=== PATIENT | male | born 1970 | race Caucasian/White ===

== ENCOUNTER 2018-05-23 15:50 | Observation (INO) ==
[2018-05-23] MEDS ORDERED: Sod Chloride 0.9% Inj 1,000 ML IV.SIG ONE (17:33)
--- NOTE | 2018-05-23 17:36 | ED ---
HPI General Chief complaint: Abdominal Pain Stated complaint: Pancreas Time Seen by Provider: 05/23/18 17:21 History of Present Illness HPI narrative: This is a 47-year-old male who was sent by his primary care physician Dr. Kojo Guzman for evaluation of abnormal outpatient ultrasound results. The patient reports over the past 2 months he has been having intermittent pain in his right upper quadrant of the abdomen. Pain is sharp, seems to be worse after eating fatty foods. He reports that he had a particularly bad episode over the weekend and then another one yesterday after eating a breakfast burrito. The pain is associated with nausea. Currently he is not having any pain. He was seen today by his primary care physician and sent for an outpatient right upper quadrant ultrasound which revealed limited visibility of the pancreas, fluid collection adjacent to the pancreatic head, could be reflection of pseudocyst formation or possible pancreatic inflammation such as pancreatitis. CT scan with contrast recommended, numerous gallstones in the gallbladder with some sludge, gallbladder wall thickening is not substantially present but there is pericholecystic fluid present which suggest possible inflammation. Further investigation with nuclear medicine HIDA scan recommended. The patient is denying any fevers, chills, vomiting, flank pain. He reports that he drinks 2 beers approximately 4-5 days a week. Reports history of appendectomy. No other complaints. Related Data Home Medications Medication Instructions Recorded Confirmed amlodipine 10 mg PO DAILY 05/23/18 05/23/18 dapagliflozin [Farxiga] 10 mg PO DAILY 05/23/18 05/23/18 ergocalciferol (vitamin D2) 50,000 unit PO QWEEK 05/23/18 05/23/18 [Vitamin D2] lisinopril 20 mg PO DAILY 05/23/18 05/23/18 phentermine 37.5 mg PO DAILY 05/23/18 05/23/18 Allergies Allergy/AdvReac Type Severity Reaction Status Date / Time No Known Allergies Allergy Uncoded 11/28/15 23:59 Review of Systems ROS: all other systems reviewed are negative [facility] Medical History Medical History Diabetes (Acute) Hypertension (Acute) Obesity (Acute) Surgical History Surgical History Hx of appendectomy (Acute) Family History Family History Mother Osteoarthritis Father Suicide Social History Social History Substance History: Past History Second Hand Smoke Exposure: No Smoking Status: Never smoker How Often Do You Have a Drink Containing Alcohol: 4 or more times a week Recent Travel in [place] within the Last 8 Weeks: No Recent Out of Country Travel within the Last 8 Weeks: No Exam Narrative Exam Narrative: GENERAL: Pleasant well-developed well-nourished male in no acute distress SKIN: Warm and dry. HEAD: Atraumatic. Normocephalic. EYES: Pupils equal and round. No scleral icterus. No injection or drainage. ENT: No nasal bleeding or discharge. Mucous membranes pink and moist. NECK: Trachea midline. No JVD. CARDIOVASCULAR: Regular rate and rhythm. No murmur appreciated. RESPIRATORY: No accessory muscle use. Clear to auscultation. Breath sounds equal bilaterally. GASTROINTESTINAL: Abdomen soft, tender to palpation right upper quadrant, somewhat positive Bergman sign. MUSCULOSKELETAL: No obvious deformities. No clubbing. No cyanosis. No edema. NEUROLOGICAL: Awake and alert. No obvious cranial nerve deficits. Motor grossly within normal limits. Normal speech. Course Initial Documented Vital Signs Temperature 98.1 F 05/23/18 17:10 Pulse Rate 111 H 05/23/18 17:10 Respiratory Rate 18 05/23/18 17:10 Blood Pressure 143/73 H 05/23/18 17:10 Pulse Oximetry 97 05/23/18 17:10 Last Documented Vital Signs Temperature 98 F 05/24/18 16:44 Pulse Rate 91 H 05/24/18 16:44 Respiratory Rate 18 05/24/18 16:44 Blood Pressure 109/62 05/24/18 16:44 Pulse Oximetry 97 05/24/18 16:44 Medical Decision Making SUGEY Attestation SUGEY supervised visit: Yes Attestation: I, Dr. Cota, have reviewed the advance practice practitioner's documentation and am in agreement, met with the patient face to face, made the diagnosis, and the medical decision making was done by me. *My assessment and Findings: Patient is a 47 year old male who comes in comes in due to multiple episodes of abdominal pain with vomiting after eating fatty meals for the past 2 months. He had an ultrasound performed as an outpatient and was told to come to the ED. Patient is currently nontender on exam. He had his last episode last night. AG is elevated to 16, likely due to vomiting. CT ordered, surgery consulted. Patient to be admitted. MDM Narrative Medical decision making narrative: IV established, lab work, CT abdomen pelvis ordered. The patient was given 1 L normal saline. Lab work reveals leukocytosis with WBC count of 13.2, IV Zosyn was administered when this resulted. Anion gap is 16, carbon dioxide 17. Random glucose is 150. Lactic acid is 1.6. Beta hydroxybutyrate is 4.81. Additional liter of normal saline administered. CT abdomen pelvis reveals severe hepatic steatosis as well as a dilated gallbladder containing wall thickening versus pericholecystic fluid. Cholecystitis should be excluded. The case will be discussed with the on-call surgeon. Last meal was yesterday. d/w Dr. Dowd general surgery who would like the patient admitted to medicine and he will consult, remain npo. D/W Dr. Mancuso. Medical Screen Exam Complete: Yes Emergency Medical Condition: Yes Differential Diagnosis Differential Diagnosis: Cholecystitis versus biliary colic versus pancreatitis versus choledocholithiasis versus gastritis Lab Data Result diagrams: 05/24/18 04:50 05/24/18 04:30 Lab Results 05/23/18 05/23/18 05/23/18 Range/Units 17:54 17:54 17:54 WBC 13.2 H (4.0-11.0) th/mm3 RBC 5.75 (4.50-5.90) mil/mm3 Hgb 16.9 (13.0-17.0) gm/dL Hct 50.0 (39.0-51.0) % MCV 87.0 (80.0-100.0) fL MCH 29.4 (27.0-34.0) pg MCHC 33.8 (32.0-36.0) % RDW 15.1 (11.6-17.2) % Plt Count 250 (150-450) th/mm3 MPV 7.5 (7.0-11.0) fL Neut % (Auto) 78.0 H (16.0-70.0) % Lymph % (Auto) 12.5 (9.0-44.0) % [place] % (Auto) 8.8 H (0.0-8.0) % Eos % (Auto) 0.2 (0.0-4.0) % Baso % (Auto) 0.5 (0.0-2.0) % Neut # (Auto) 10.3 H (1.8-7.7) th/mm3 Lymph # (Auto) 1.6 (1.0-4.8) th/mm3 [place] # (Auto) 1.2 H (0.0-0.9) th/mm3 Eos # (Auto) 0.0 (0.0-0.4) th/mm3 Baso # (Auto) 0.1 (0.0-0.2) th/mm3 WBC Differential . Differential Comment Auto diff final PT 10.3 (9.8-11.6) sec INR 1.0 Ratio APTT 31.5 (23.4-31.7) sec Sodium 135 L (136-145) meq/L Potassium 4.3 (3.5-5.1) meq/L Chloride 102 (98-107) meq/L Carbon Dioxide 17.0 L (21.0-32.0) meq/L Anion Gap 16 H (5-15) meq/L BUN 14 (7-18) mg/dL Creatinine 1.12 (0.60-1.30) mg/dL Estimated GFR 70 L (>89) mL/min POC Glucose (68-110) mg/dl Random Glucose 150 H (74-106) mg/dL Lactic Acid (0.4-2.0) mmol/L Calcium 10.5 H (8.5-10.1) mg/dL Magnesium 2.3 (1.5-2.5) mg/dL Total Bilirubin 1.5 H (0.2-1.0) mg/dL AST 21 (15-37) U/L ALT 104 H (12-78) U/L Alkaline Phosphatase 79 (45-117) U/L Total Protein 9.5 H (6.4-8.2) g/dL Albumin 4.6 (3.4-5.0) g/dL Lipase 113 (73-393) U/L Beta-Hydroxybutyric Acd (0.00-0.39) mmol/L Urine Color (Yellw/Straw) Urine Clarity (Clear) Urine pH (5.0-8.5) Ur Specific [place] (1.002-1.035) Urine Protein (Neg-Trace) mg/dL Urine Glucose (UA) (Negative) mg/dL Urine Ketones (Negative) mg/dL Urine Occult Blood (Negative) Urine Nitrate (Negative) Urine Bilirubin (Negative) Urine Urobilinogen (Less than 2) mg/dL Ur Leukocyte Esterase (Negative) Urine RBC (0-3) /hpf Urine WBC (0-5) /hpf Ur Squamous Epith Cells (0-5) /hpf Urine Mucus (Occasional) /lpf Micro UA Comment Ur Microscopic Review Urine Culture Comments Salicylates (2.8-20.0) mg/dL 05/23/18 05/23/18 05/23/18 Range/Units 17:54 17:54 17:54 WBC (4.0-11.0) th/mm3 RBC (4.50-5.90) mil/mm3 Hgb (13.0-17.0) gm/dL Hct (39.0-51.0) % MCV (80.0-100.0) fL MCH (27.0-34.0) pg MCHC (32.0-36.0) % RDW (11.6-17.2) % Plt Count (150-450) th/mm3 MPV (7.0-11.0) fL Neut % (Auto) (16.0-70.0) % Lymph % (Auto) (9.0-44.0) % [place] % (Auto) (0.0-8.0) % Eos % (Auto) (0.0-4.0) % Baso % (Auto) (0.0-2.0) % Neut # (Auto) (1.8-7.7) th/mm3 Lymph # (Auto) (1.0-4.8) th/mm3 [place] # (Auto) (0.0-0.9) th/mm3 Eos # (Auto) (0.0-0.4) th/mm3 Baso # (Auto) (0.0-0.2) th/mm3 WBC Differential Differential Comment PT (9.8-11.6) sec INR Ratio APTT (23.4-31.7) sec Sodium (136-145) meq/L Potassium (3.5-5.1) meq/L Chloride (98-107) meq/L Carbon Dioxide (21.0-32.0) meq/L Anion Gap (5-15) meq/L BUN (7-18) mg/dL Creatinine (0.60-1.30) mg/dL Estimated GFR (>89) mL/min POC Glucose (68-110) mg/dl Random Glucose (74-106) mg/dL Lactic Acid (0.4-2.0) mmol/L Calcium (8.5-10.1) mg/dL Magnesium (1.5-2.5) mg/dL Total Bilirubin (0.2-1.0) mg/dL AST (15-37) U/L ALT (12-78) U/L Alkaline Phosphatase (45-117) U/L Total Protein (6.4-8.2) g/dL Albumin (3.4-5.0) g/dL Lipase (73-393) U/L Beta-Hydroxybutyric Acd 4.81 H (0.00-0.39) mmol/L Urine Color Yellow (Yellw/Straw) Urine Clarity Clear (Clear) Urine pH 5.0 (5.0-8.5) Ur Specific Loris 1.033 (1.002-1.035) Urine Protein Negative (Neg-Trace) mg/dL Urine Glucose (UA) 500 or greater (Negative) mg/dL Urine Ketones 80 or greater H (Negative) mg/dL Urine Occult Blood Negative (Negative) Urine Nitrate Negative (Negative) Urine Bilirubin Negative (Negative) Urine Urobilinogen Less than 2 (Less than 2) mg/dL Ur Leukocyte Esterase Negative (Negative) Urine RBC 1 (0-3) /hpf Urine WBC 1 (0-5) /hpf Ur Squamous Epith Cells <1 (0-5) /hpf Urine Mucus Few H (Occasional) /lpf Micro UA Comment Culture not ind Ur Microscopic Review Not Reportable Urine Culture Comments Culture not ind Salicylates Less than 1.7 L (2.8-20.0) mg/dL 05/23/18 05/23/18 05/24/18 Range/Units 18:35 21:42 04:30 WBC (4.0-11.0) th/mm3 RBC (4.50-5.90) mil/mm3 Hgb (13.0-17.0) gm/dL Hct (39.0-51.0) % MCV (80.0-100.0) fL MCH (27.0-34.0) pg MCHC (32.0-36.0) % RDW (11.6-17.2) % Plt Count (150-450) th/mm3 MPV (7.0-11.0) fL Neut % (Auto) (16.0-70.0) % Lymph % (Auto) (9.0-44.0) % [place] % (Auto) (0.0-8.0) % Eos % (Auto) (0.0-4.0) % Baso % (Auto) (0.0-2.0) % Neut # (Auto) (1.8-7.7) th/mm3 Lymph # (Auto) (1.0-4.8) th/mm3 [place] # (Auto) (0.0-0.9) th/mm3 Eos # (Auto) (0.0-0.4) th/mm3 Baso # (Auto) (0.0-0.2) th/mm3 WBC Differential Differential Comment PT (9.8-11.6) sec INR Ratio APTT (23.4-31.7) sec Sodium 138 (136-145) meq/L Potassium 4.3 (3.5-5.1) meq/L Chloride 109 H (98-107) meq/L Carbon Dioxide 12.1 L (21.0-32.0) meq/L Anion Gap 17 H (5-15) meq/L BUN 13 (7-18) mg/dL Creatinine 0.85 (0.60-1.30) mg/dL Estimated GFR Greater than 89 (>89) mL/min POC Glucose 130 H (68-110) mg/dl Random Glucose 120 H (74-106) mg/dL Lactic Acid 1.6 (0.4-2.0) mmol/L Calcium 8.6 D (8.5-10.1) mg/dL Magnesium (1.5-2.5) mg/dL Total Bilirubin 1.2 H (0.2-1.0) mg/dL AST 13 L (15-37) U/L ALT 70 (12-78) U/L Alkaline Phosphatase 63 (45-117) U/L Total Protein 7.6 D (6.4-8.2) g/dL Albumin 3.5 D (3.4-5.0) g/dL Lipase (73-393) U/L Beta-Hydroxybutyric Acd 5.50 H D (0.00-0.39) mmol/L Urine Color (Yellw/Straw) Urine Clarity (Clear) Urine pH (5.0-8.5) Ur Specific Loris (1.002-1.035) Urine Protein (Neg-Trace) mg/dL Urine Glucose (UA) (Negative) mg/dL Urine Ketones (Negative) mg/dL Urine Occult Blood (Negative) Urine Nitrate (Negative) Urine Bilirubin (Negative) Urine Urobilinogen (Less than 2) mg/dL Ur Leukocyte Esterase (Negative) Urine RBC (0-3) /hpf Urine WBC (0-5) /hpf Ur Squamous Epith Cells (0-5) /hpf Urine Mucus (Occasional) /lpf Micro UA Comment Ur Microscopic Review Urine Culture Comments Salicylates (2.8-20.0) mg/dL 05/24/18 05/24/18 05/24/18 Range/Units 04:50 08:44 15:11 WBC 11.4 H (4.0-11.0) th/mm3 RBC 4.98 (4.50-5.90) mil/mm3 Hgb 14.5 D (13.0-17.0) gm/dL Hct 43.5 (39.0-51.0) % MCV 87.5 (80.0-100.0) fL MCH 29.1 (27.0-34.0) pg MCHC 33.3 (32.0-36.0) % RDW 14.7 (11.6-17.2) % Plt Count 199 (150-450) th/mm3 MPV 7.4 (7.0-11.0) fL Neut % (Auto) 75.5 H (16.0-70.0) % Lymph % (Auto) 15.2 (9.0-44.0) % [place] % (Auto) 8.2 H (0.0-8.0) % Eos % (Auto) 0.6 (0.0-4.0) % Baso % (Auto) 0.5 (0.0-2.0) % Neut # (Auto) 8.6 H (1.8-7.7) th/mm3 Lymph # (Auto) 1.7 (1.0-4.8) th/mm3 [place] # (Auto) 0.9 (0.0-0.9) th/mm3 Eos # (Auto) 0.1 (0.0-0.4) th/mm3 Baso # (Auto) 0.1 (0.0-0.2) th/mm3 WBC Differential . Differential Comment Auto diff final PT (9.8-11.6) sec INR Ratio APTT (23.4-31.7) sec Sodium (136-145) meq/L Potassium (3.5-5.1) meq/L Chloride (98-107) meq/L Carbon Dioxide (21.0-32.0) meq/L Anion Gap (5-15) meq/L BUN (7-18) mg/dL Creatinine (0.60-1.30) mg/dL Estimated GFR (>89) mL/min POC Glucose 117 H 163 H (68-110) mg/dl Random Glucose (74-106) mg/dL Lactic Acid (0.4-2.0) mmol/L Calcium (8.5-10.1) mg/dL Magnesium (1.5-2.5) mg/dL Total Bilirubin (0.2-1.0) mg/dL AST (15-37) U/L ALT (12-78) U/L Alkaline Phosphatase (45-117) U/L Total Protein (6.4-8.2) g/dL Albumin (3.4-5.0) g/dL Lipase (73-393) U/L Beta-Hydroxybutyric Acd (0.00-0.39) mmol/L Urine Color (Yellw/Straw) Urine Clarity (Clear) Urine pH (5.0-8.5) Ur Specific [place] (1.002-1.035) Urine Protein (Neg-Trace) mg/dL Urine Glucose (UA) (Negative) mg/dL Urine Ketones (Negative) mg/dL Urine Occult Blood (Negative) Urine Nitrate (Negative) Urine Bilirubin (Negative) Urine Urobilinogen (Less than 2) mg/dL Ur Leukocyte Esterase (Negative) Urine RBC (0-3) /hpf Urine WBC (0-5) /hpf Ur Squamous Epith Cells (0-5) /hpf Urine Mucus (Occasional) /lpf Micro UA Comment Ur Microscopic Review Urine Culture Comments Salicylates (2.8-20.0) mg/dL Imaging Data Radiologist's impression: Abdomen/Pelvis CT 05/23/18 17:33 CONCLUSION: 1. Severe hepatic steatosis. 2. Dilated gallbladder containing wall thickening versus pericholecystic fluid. Cholecystitis should be excluded. Discharge Plan Discharge Disposition Patient Disposition: ED Admit(ED Internal Use Only) Discharge Condition Condition: Stable Discharge Order Discharge Orders: ED Use Only Admit Order (Routine); Ordered 05/23/18 Ordered By: Ethan Vuong Discharge Details Diagnosis: Cholecystitis Physicians Team ED Provider: Kiya Cota ED Midlevel Provider: Ethan Vuong Primary Care Provider: Kojo Tadeo III Attending Provider: Lon Madrid Other Providers: Jameson Vincent Status ED Status: Left Department Discharge Information Discharge Date/Time: 05/23/18 21:53
[2018-05-23 18:08] LABS: Baso # (Auto) 0.1 th/mm3 (0.0-0.2); Baso % (Auto) 0.5 % (0.0-2.0); Eos % (Auto) 0.2 % (0.0-4.0); Hemoglobin 16.9 gm/dL (13.0-17.0); Lymph # (Auto) 1.6 th/mm3 (1.0-4.8); Lymph % (Auto) 12.5 % (9.0-44.0); Mean Corpuscular HGB Conc 33.8 % (32.0-36.0); Mean Corpuscular Hemoglobin 29.4 pg (27.0-34.0); Mean Platelet Volume 7.5 fL (7.0-11.0); Mono # (Auto) 1.2 th/mm3 (0.0-0.9); Mono % (Auto) 8.8 % (0.0-8.0); Neut # (Auto) 10.3 th/mm3 (1.8-7.7); Platelet Count 250 th/mm3 (150-450); Red Blood Count 5.75 mil/mm3 (4.50-5.90); Red Cell Distribution Width 15.1 % (11.6-17.2); White Blood Count 13.2 th/mm3 (4.0-11.0)
[2018-05-23 18:11] LABS: Bilirubin,Urine Negative (Negative); Clarity,Urine Clear (Clear); Color,Urine Yellow (Yellw/Straw); Glucose,Urine (UA) 500 or Greater mg/dL (Negative); Leukocyte Esterase,Urine Negative (Negative); Mucus,Urine Few /lpf (Occasional); Nitrite,Urine Negative (Negative); Specific Gravity,Urine 1.033 (1.002-1.035); Squamous Epithelial Cell,Urine <1 /hpf (0-5)
[2018-05-23 18:22] LABS: Albumin 4.6 g/dL (3.4-5.0); Anion Gap 16 meq/L (5-15); Aspartate Aminotransferase 21 U/L (15-37); Blood Urea Nitrogen 14 mg/dL (7-18); Calcium 10.5 mg/dL (8.5-10.1); Chloride 102 meq/L (98-107); Glomerular Filtration Rate 70 mL/min (>89); Glucose,Random 150 mg/dL (74-106); Lipase 113 U/L (73-393); Magnesium 2.3 mg/dL (1.5-2.5); Potassium 4.3 meq/L (3.5-5.1); Sodium 135 meq/L (136-145)
[2018-05-23 18:23] LABS: Alanine Aminotransferase 104 U/L (12-78)
[2018-05-23 18:25] LABS: Alkaline Phosphatase 79 U/L (45-117); Total Protein 9.5 g/dL (6.4-8.2)
[2018-05-23] MEDS ORDERED: Piperacil/Tazo 4.5 GM Premix 4.5 GM/100 ML BAG IV.SIG SCH (18:30)
[2018-05-23 18:32] LABS: Activated Partial Thrombo Time 31.5 sec (23.4-31.7); Prothrombin Time 10.3 sec (9.8-11.6)
--- NOTE | 2018-05-23 19:31 | CT ---
EXAM DATE: 05/23/2018 7:04 PM EST AGE/SEX: 47 years / Male INDICATIONS: Right upper abdomen pain, nausea vomiting, generalize weakness. CLINICAL DATA: This is the patient's initial encounter. Patient reports that signs and symptoms have been present for 1 day and indicates a pain score of 3/10. MEDICAL/SURGICAL HISTORY: Diabetes. Hypertension. Appendectomy. ORAL CONTRAST: No oral contrast ingested. RADIATION DOSE: 16.29 CTDI (mGy) COMPARISON: No prior exams available for comparison. TECHNIQUE: Multiple contiguous axial images were obtained through the abdomen and pelvis following b olus infusion of 90 ml Omnipaque 350 (iohexol) nonionic water-soluble contrast as a single exam dos e. No oral contrast ingested. Using automated exposure control and adjustment of the mA and/or kV ac cording to patient size, radiation dose was kept as low as reasonably achievable to obtain optimal di agnostic quality images. DICOM format image data is available electronically for review and comparis on. FINDINGS: Lower Lungs: The visualized lower lungs are clear. Liver: The liver is decreased in attenuation without space-occupying lesion. There is no dilation of the biliary tree. Dilated gallbladder containing pericholecystic fluid versus wall thickening. Spleen: Homogeneous density without enlargement. Pancreas: Unremarkable without mass or calcification. Kidneys: Normal in size and shape. No evidence of mass or hydronephrosis. Adrenal Glands: Unremarkable. Aorta: The aorta and proximal iliac vessels are grossly unremarkable without aneurysmal dilation. Bowel/Mesentery: The bowel loops are grossly unremarkable. The cecum and sigmoid colon have a normal configuration. Appendectomy clips. Abdominal Wall: Intact. Retroperitoneum: No evidence of adenopathy in the retrocrural, para-aortic, or deep pelvic regions. Bladder: Contours are smooth. Reproductive Organs: No abnormal masses or calcifications seen. Inguinal: The inguinal region is unremarkable without evidence of adenopathy. Bony Structures: Unremarkable. CONCLUSION: 1. Severe hepatic steatosis. 2. Dilated gallbladder containing wall thickening versus pericholecystic fluid. Cholecystitis should be excluded. Electronically signed by: Ananda Solo MD Board Certified Radiologist 05/23/2018 7:29 PM EST
[2018-05-23] MEDS ORDERED: Sod Chloride 0.9% Inj 1,000 ML IV.SIG SCH (19:45)
--- NOTE | 2018-05-23 20:53 | P.HP ---
History of Present Illness Service: [facility] Adult med Primary Care Physician: Kojo Tadeo III, MD Chief Complaint: RUQ pain, sent by PCP History of Present Illness: This is a 47-year-old male with DM2 who was sent by his primary care physician Dr. Kojo Guzman for evaluation of abnormal outpatient ultrasound results. The patient reports over the past 2-3 months he has been having intermittent pain in his right upper quadrant of the abdomen. Pain is sharp, seems to be worse after eating fatty foods. He reports that he had a particularly bad episode over the weekend and then another one yesterday after eating a breakfast burrito. The pain is associated with nausea. Currently he is not having any pain. He was seen today by his primary care physician and sent for an outpatient right upper quadrant ultrasound which revealed limited visibility of the pancreas, fluid collection adjacent to the pancreatic head, could be reflection of pseudocyst formation or possible pancreatic inflammation such as pancreatitis. He was sent to ER as CT scan with contrast was recommended. CT here reveals numerous gallstones in the gallbladder with some sludge, gallbladder wall thickening is not substantially present but there is pericholecystic fluid present which suggest possible inflammation. The patient is denying any fevers, chills, vomiting, flank pain. He reports that he drinks 2 beers approximately 4-5 days a week. Reports history of appendectomy. No other complaints. Gen surgery was consulted by ER provider and recommended NPO with admission to medical service. Pt has not been eating or drinking much over last 24-36 hrs, but has been taking his home meds including Farxiga. 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 This includes certification that hospital inpatient services are reasonable and necessary and in the case of services not specified as inpatient-only under 42 CFR 419.22(n), that they are appropriately provided as inpatient services in accordance to with the 2-midnight benchmark under 43 CFR 412.3(e) Review of Systems Constitutional: Reports anorexia, Reports fatigue, Denies body ache(s), Denies chills, Denies daytime sleepiness, Denies excessive sweating, Denies fever(s), Denies headache(s), Denies increased appetite, Denies lack of energy, Denies malaise, Denies night sweats, Denies weakness, Denies weight gain, Denies weight loss, Denies other Eyes: Denies blind spots, Denies blurry vision, Denies bulging eyes, Denies change in vision, Denies double vision, Denies discharge, Denies dry eyes, Denies floaters, Denies irritation, Denies itchy eyes, Denies loss of vision, Denies pain, Denies requires corrective lenses, Denies sensitivity to light, Denies other Ears, Nose, Mouth, and Throat: Denies abnormal hearing, Denies bleeding gums, Denies bad breath, Denies change in voice, Denies dental pain, Denies difficulty swallowing, Denies dizziness, Denies dry mouth, Denies ear discharge , Denies ear pain, Denies facial pain, Denies headache(s), Denies hearing loss, Denies hoarseness, Denies lip swelling, Denies nosebleed, Denies mouth lesions, Denies mouth pain, Denies nasal congestion, Denies nasal discharge, Denies nasal obstruction, Denies nasal trauma, Denies neck lump, Denies neck pain, Denies nose pain, Denies pain with swallowing, Denies poor balance, Denies post nasal drip, Denies ringing in the ears, Denies sinus pain, Denies sinus pressure , Denies sore throat, Denies throat swelling, Denies tongue swelling, Denies other Cardiovascular: Denies chest pain, Denies chest pain at rest, Denies chest pain with activity, Denies excessive sweating, Denies fainting, Denies fast heart rate, Denies foot swelling, Denies generalized swelling, Denies irregular heart rhythm, Denies leg pain with activity, Denies leg sores, Denies leg swelling, Denies lightheadedness, Denies radiating jaw, neck or arm pain, Denies rapid, pounding, or irregular heartbeat, Denies shortness of breath, Denies shortness of breath with activity, Denies shortness of breath when lying down, Denies shortness of breath causing sudden awakening, Denies slow heart rate, Denies other Respiratory: Denies change in phlegm color, Denies chest congestion, Denies cough, Denies coughing up blood, Denies excessive phlegm production, Denies pain on inspiration, Denies pain with cough, Denies shortness of breath, Denies shortness of breath with activity, Denies snoring, Denies stridor, Denies wheezing, Denies other Gastrointestinal: Reports abdominal pain, Reports feeling full early, Reports nausea, Denies belching, Denies black, tarry stools, Denies bloating, Denies bright, red blood in stools, Denies change in bowel habits, Denies constant urge to pass stool, Denies change in stools, Denies coffee ground vomit, Denies constipation, Denies cramping, Denies difficulty swallowing, Denies excessive passing of gas, Denies heartburn, Denies incontinent of stools, Denies loose stools, Denies pain with swallowing, Denies vomiting, Denies vomiting blood, Denies other Genitourinary: Denies blood in semen, Denies blood in urine, Denies decreased urination, Denies difficulty urinating, Denies difficulty with ejaculations, Denies erectile dysfunction, Denies genital lesions, Denies genital pain, Denies painful urination, Denies side pain, Denies frequent nighttime urination , Denies painful ejaculations, Denies penile discharge, Denies scrotal swelling , Denies testicle lump, Denies testicle pain, Denies urinary frequency, Denies urinary hesitancy, Denies urinary incontinence, Denies urinary urgency, Denies other Musculoskeletal: Denies abnormal walking, Denies back pain, Denies body aches, Denies decreased muscle mass, Denies deformity, Denies joint pain, Denies joint swelling, Denies limited joint movement, Denies loss of height, Denies muscle cramps, Denies muscle weakness, Denies neck pain, Denies numbness, Denies radiating pain into limb, Denies stiffness, Denies tingling, Denies other Skin/Breast: Denies acne, Denies bleeding lesions, Denies boil, Denies breast swelling, Denies breast skin changes, Denies breast pain, Denies breast lump, Denies change in breast shape, Denies change in hair, Denies change in skin color, Denies changing lesions, Denies dry skin, Denies excessive hair growth, Denies hair loss, Denies itching, Denies lesions, Denies nail changes, Denies new lesions, Denies nipple discharge, Denies non-healing lesions, Denies redness , Denies sensitivity to light, Denies rash, Denies skin pain, Denies skin ulcer , Denies sores, Denies stretch schwab, Denies unusual bruising, Denies wounds, Denies yellowing of the skin, Denies other Neurologic: Denies abnormal hearing, Denies abnormal movements, Denies abnormal speech, Denies abnormal walking, Denies behavioral changes, Denies burning sensations, Denies confusion, Denies dizziness, Denies fainting, Denies frequent falls, Denies headache(s), Denies lack of coordination, Denies localized weakness, Denies loss of vision, Denies memory loss, Denies numbness, Denies other visual disturbances, Denies radiating pain, Denies restless legs, Denies convulsions, Denies seizure-like activity, Denies sensory deficit, Denies tingling, Denies tingling/numbness/burning sensations, Denies tremor(s), Denies unsteadiness, Denies weakness, Denies other Psychiatric: Reports anxiety PMFSH - History History Provided By: Patient - Medical History Medical History: Medical History (Last Updated 05/23/18 @ 20:51 by Umberto Mancuso MD, PhD) Diabetes (Acute) Hypertension (Acute) Obesity - Surgical History Surgical History: Surgical History (Last Reviewed 05/23/18 @ 17:26 by Tonya Ospina RN) Hx of appendectomy - Family History Family History: Family History (Last Updated 05/23/18 @ 20:49 by Umberto Mancuso MD, PhD) Mother Osteoarthritis Father Suicide - Social History I have reviewed the patient's Social History: Yes - Tobacco History Second Hand Smoke Exposure: No Tobacco Use In Past 30 Days: No Smoking Status: Never smoker - Alcohol History How Often Do You Have a Drink Containing Alcohol: 4 or more times a week - Substance Use History Substance History: Past History - Substance Use Type Marijuana Status: Active Route Used: Inhalation - Travel History Recent Travel in the [facility] Within the Last 8 Weeks: No Recent Travel Out of the Country Within the Last 8 Weeks: No - Immunization History Tetanus Immunization: Unsure Medications and Allergies Active Medications: Active Medications Piperacillin/Tazobactam/Dextrose (Zosyn 4.5 Gm Premix) 4.5 gm in 100 mls @ 200 mls/hr IV.SIG ONCE LANG Sodium Chloride (Ns Flush) 2 ml IV.FLUSH PRN PRN PRN Reason: FLUSH AFTER USING IV ACCESS Allergies Allergy/AdvReac Type Severity Reaction Status Date / Time No Known Allergies Allergy Uncoded 11/28/15 23:59 Home Medications Medication Instructions Recorded Confirmed Type amlodipine 10 mg PO DAILY 05/23/18 05/23/18 History dapagliflozin [Farxiga] 10 mg PO DAILY 05/23/18 05/23/18 History ergocalciferol (vitamin D2) 50,000 unit PO QWEEK 05/23/18 05/23/18 History [Vitamin D2] lisinopril 20 mg PO DAILY 05/23/18 05/23/18 History phentermine 37.5 mg PO DAILY 05/23/18 05/23/18 History Exam Vital signs: Vital Signs 05/23/18 17:10 05/23/18 17:26 05/23/18 19:50 Temperature 98.1 F Pulse Rate 111 H 104 H 92 H Respiratory Rate 18 21 16 Blood Pressure 143/73 H 130/78 126/70 Pulse Oximetry 97 99 100 Intake & Output 05/23/18 05/23/18 05/24/18 06:59 18:59 06:59 Intake Total 1000 / 1000 Balance 1000 / 1000 Weight 102.512 kg Intake: IV 1000 / 1000 NS Inj 1,000 ML @ Wide Open IV. 1000 / 1000 SIG BOLUS ONE Rx#:[id number] Narrative: GENERAL: obese, NAD, a/o, cooperative with exam SKIN: Warm and dry. HEAD: Atraumatic. Normocephalic. EYES: Pupils equal and round. No scleral icterus. No injection or drainage. ENT: No nasal bleeding or discharge. Mucous membranes pink and moist. NECK: Trachea midline. No JVD. CARDIOVASCULAR: Regular rate and rhythm. no murmur RESPIRATORY: No accessory muscle use. Clear to auscultation. Breath sounds equal bilaterally. GASTROINTESTINAL: Abdomen soft, non-tender, nondistended. Hepatic and splenic margins not palpable. negative Bergman's, no g/r, BS wnl MUSCULOSKELETAL: Extremities without clubbing, cyanosis, or edema. No obvious deformities. NEUROLOGICAL: Awake and alert. No obvious cranial nerve deficits. Motor grossly within normal limits. Five out of 5 muscle strength in the arms and legs. Normal speech. PSYCHIATRIC: Appropriate mood and affect; insight and judgment normal. Results - Labs CBC & Chem 7: 05/23/18 17:54 05/23/18 17:54 Labs: Laboratory Results - last 24 hr 05/23/18 05/23/18 05/23/18 17:54 17:54 17:54 WBC 13.2 H RBC 5.75 Hgb 16.9 Hct 50.0 MCV 87.0 MCH 29.4 MCHC 33.8 RDW 15.1 Plt Count 250 MPV 7.5 Neut % (Auto) 78.0 H Lymph % (Auto) 12.5 Hawkins % (Auto) 8.8 H Eos % (Auto) 0.2 Baso % (Auto) 0.5 Neut # (Auto) 10.3 H Lymph # (Auto) 1.6 Hawkins # (Auto) 1.2 H Eos # (Auto) 0.0 Baso # (Auto) 0.1 WBC Differential . Differential Comment Auto diff final PT 10.3 INR 1.0 APTT 31.5 Sodium 135 L Potassium 4.3 Chloride 102 Carbon Dioxide 17.0 L Anion Gap 16 H BUN 14 Creatinine 1.12 Estimated GFR 70 L Random Glucose 150 H Lactic Acid Calcium 10.5 H Magnesium 2.3 Total Bilirubin 1.5 H AST 21 ALT 104 H Alkaline Phosphatase 79 Total Protein 9.5 H Albumin 4.6 Lipase 113 Beta-Hydroxybutyric Acd Urine Color Urine Clarity Urine pH Ur Specific Orange Urine Protein Urine Glucose (UA) Urine Ketones Urine Occult Blood Urine Nitrate Urine Bilirubin Urine Urobilinogen Ur Leukocyte Esterase Urine RBC Urine WBC Ur Squamous Epith Cells Urine Mucus Micro UA Comment Ur Microscopic Review Urine Culture Comments Salicylates 05/23/18 05/23/18 05/23/18 17:54 17:54 17:54 WBC RBC Hgb Hct MCV MCH MCHC RDW Plt Count MPV Neut % (Auto) Lymph % (Auto) Hawkins % (Auto) Eos % (Auto) Baso % (Auto) Neut # (Auto) Lymph # (Auto) Hawkins # (Auto) Eos # (Auto) Baso # (Auto) WBC Differential Differential Comment PT INR APTT Sodium Potassium Chloride Carbon Dioxide Anion Gap BUN Creatinine Estimated GFR Random Glucose Lactic Acid Calcium Magnesium Total Bilirubin AST ALT Alkaline Phosphatase Total Protein Albumin Lipase Beta-Hydroxybutyric Acd 4.81 H Urine Color Yellow Urine Clarity Clear Urine pH 5.0 Ur Specific Orange 1.033 Urine Protein Negative Urine Glucose (UA) 500 or greater Urine Ketones 80 or greater H Urine Occult Blood Negative Urine Nitrate Negative Urine Bilirubin Negative Urine Urobilinogen Less than 2 Ur Leukocyte Esterase Negative Urine RBC 1 Urine WBC 1 Ur Squamous Epith Cells <1 Urine Mucus Few H Micro UA Comment Culture not ind Ur Microscopic Review Not Reportable Urine Culture Comments Culture not ind Salicylates Less than 1.7 L 05/23/18 18:35 WBC RBC Hgb Hct MCV MCH MCHC RDW Plt Count MPV Neut % (Auto) Lymph % (Auto) Hawkins % (Auto) Eos % (Auto) Baso % (Auto) Neut # (Auto) Lymph # (Auto) Hawkins # (Auto) Eos # (Auto) Baso # (Auto) WBC Differential Differential Comment PT INR APTT Sodium Potassium Chloride Carbon Dioxide Anion Gap BUN Creatinine Estimated GFR Random Glucose Lactic Acid 1.6 Calcium Magnesium Total Bilirubin AST ALT Alkaline Phosphatase Total Protein Albumin Lipase Beta-Hydroxybutyric Acd Urine Color Urine Clarity Urine pH Ur Specific Orange Urine Protein Urine Glucose (UA) Urine Ketones Urine Occult Blood Urine Nitrate Urine Bilirubin Urine Urobilinogen Ur Leukocyte Esterase Urine RBC Urine WBC Ur Squamous Epith Cells Urine Mucus Micro UA Comment Ur Microscopic Review Urine Culture Comments Salicylates - Imaging Impressions Abdomen/Pelvis CT 05/23/18 17:33 CONCLUSION: 1. Severe hepatic steatosis. 2. Dilated gallbladder containing wall thickening versus pericholecystic fluid. Cholecystitis should be excluded. Caprini VTE Risk Assessment Caprini VTE Risk Assessment: No/Low Risk (score <= 1) Caprini Risk Assessment Model: Point Value = 1 Point Value = 2 Point Value = 3 Point Value = 5 Age 41-60 Minor surgery BMI > 25 kg/m2 Swollen legs Varicose veins or History of unexplained or recurrent spontaneous Oral contraceptives or hormone replacement Sepsis (< 1 month) Serious lung disease, including pneumonia (< 1 month) Abnormal pulmonary function Acute myocardial infarction Congestive heart failure (< 1 month) History of inflammatory bowel disease Medical patient at bed rest Age 61-74 Arthroscopic surgery Major open surgery (> 45 min) Laparoscopic surgery (> 45 min) Malignancy Confined to bed (> 72 hours) Immobilizing plaster cast Central venous access Age >= 75 History of VTE Family history of VTE Factor V Leiden Prothrombin [id number] Lupus anticoagulant Anticardiolipin antibodies Elevated serum homocysteine Heparin-induced thrombocytopenia Other congenital or acquired thrombophilia Stroke (< 1 month) Elective arthroplasty Hip, pelvis, or leg fracture Acute spinal cord injury (< 1 month) Prophylaxis Regimen: Total Risk Factor Score Risk Level Prophylaxis Regimen 0-1 Low Early ambulation 2 Moderate Order ONE of the following: *Sequential Compression Device (SCD) *Heparin 5000 units SQ BID 3-4 Higher Order ONE of the following medications: *Heparin 5000 units SQ TID *Enoxaparin/Lovenox 40 mg SQ daily (WT < 150 kg, CrCl > 30 mL/min) *Enoxaparin/Lovenox 30 mg SQ daily (WT < 150 kg, CrCl > 10-29 mL/min) *Enoxaparin/Lovenox 30 mg SQ BID (WT < 150 kg, CrCl > 30 mL/min) AND/OR *Sequential Compression Device (SCD) 5 or more Highest Order ONE of the following medications: *Heparin 5000 units SQ TID (Preferred with Epidurals) *Enoxaparin/Lovenox 40 mg SQ daily (WT < 150 kg, CrCl > 30 mL/min) *Enoxaparin/Lovenox 30 mg SQ daily (WT < 150 kg, CrCl > 10-29 mL/min) *Enoxaparin/Lovenox 30 mg SQ BID (WT < 150 kg, CrCl > 30 mL/min) AND *Sequential Compression Device (SCD) Assessment and Plan - Assessment (1) Cholecystitis Code(s): K81.9 - Cholecystitis, unspecified Status: Acute Plan: Does not appear septic. Will have gen surgery see pt. NPO, pain meds, IVF, abx. (2) Diabetes Code(s): E11.9 - Type 2 diabetes mellitus without complications Status: Acute Plan: A1c around 9 per pt. Was on metformin in the past. Will hold Farxiga due to NPO , elevated BHB, mild metabolic acidosis. Hydrate and provide SSI (3) Hypertension Code(s): I10 - Essential (primary) hypertension Status: Acute Plan: continue meds as BP permits - Plan Code Status: full Discussed Condition With: Pt, his , ER provider (2) Diabetes Qualifiers: Diabetes mellitus type: type 2 (3) Hypertension Qualifiers: Hypertension type: essential hypertension Qualified Code(s): I10 - Essential (primary) hypertension
[2018-05-23] MEDS ORDERED: Dextrose 50% in Water 50 ML Vial IV.PUSH PRN (20:54)
[2018-05-23] MEDS ORDERED: Morphine Sulfate Inj 2 MG/ML Vial IV.PUSH PRN (20:55)
[2018-05-23] MEDS ORDERED: Piperacil/Tazo 3.375 GM Premix 3.375 GM/50 ML PIGGYBACK IV.SIG SCH (21:09)
[2018-05-23] MEDS: Insulin NovoLOG Aspart Correctional Sugar Inj SQ SCH (21:51)
[2018-05-23] MEDS: Piperacil/Tazo 3.375 GM Premix 3.375 GM/50 ML PIGGYBACK IV.SIG SCH (21:51)
[2018-05-23] MEDS: Sod Chloride 0.9% Inj 1,000 ML IV.CONT SCH (22:16)
[2018-05-24 05:23] LABS: Baso # (Auto) 0.1 th/mm3 (0.0-0.2); Baso % (Auto) 0.5 % (0.0-2.0); Eos # (Auto) 0.1 th/mm3 (0.0-0.4); Eos % (Auto) 0.6 % (0.0-4.0); Hematocrit 43.5 % (39.0-51.0); Hemoglobin 14.5 gm/dL (13.0-17.0); Lymph # (Auto) 1.7 th/mm3 (1.0-4.8); Lymph % (Auto) 15.2 % (9.0-44.0); Mean Corpuscular HGB Conc 33.3 % (32.0-36.0); Mean Corpuscular Hemoglobin 29.1 pg (27.0-34.0); Mean Corpuscular Volume 87.5 fL (80.0-100.0); Mean Platelet Volume 7.4 fL (7.0-11.0); Mono # (Auto) 0.9 th/mm3 (0.0-0.9); Mono % (Auto) 8.2 % (0.0-8.0); Neut # (Auto) 8.6 th/mm3 (1.8-7.7); Neut % (Auto) 75.5 % (16.0-70.0); Platelet Count 199 th/mm3 (150-450); Red Blood Count 4.98 mil/mm3 (4.50-5.90); Red Cell Distribution Width 14.7 % (11.6-17.2); White Blood Count 11.4 th/mm3 (4.0-11.0)
[2018-05-24] MEDS: Piperacil/Tazo 3.375 GM Premix 3.375 GM/50 ML PIGGYBACK IV.SIG SCH ×3 (05:50→21:35)
[2018-05-24] MEDS: Sod Chloride 0.9% Inj 1,000 ML IV.CONT SCH ×4 (05:50→22:22)
[2018-05-24 06:04] LABS: Alanine Aminotransferase 70 U/L (12-78); Albumin 3.5 g/dL (3.4-5.0); Alkaline Phosphatase 63 U/L (45-117); Anion Gap 17 meq/L (5-15); Aspartate Aminotransferase 13 U/L (15-37); Blood Urea Nitrogen 13 mg/dL (7-18); Calcium 8.6 mg/dL (8.5-10.1); Carbon Dioxide 12.1 meq/L (21.0-32.0); Chloride 109 meq/L (98-107); Glomerular Filtration Rate Greater Than 89 mL/min (>89); Glucose,Random 120 mg/dL (74-106); Potassium 4.3 meq/L (3.5-5.1); Sodium 138 meq/L (136-145); Total Protein 7.6 g/dL (6.4-8.2)
[2018-05-24] MEDS: Lisinopril 20 MG Tablet PO SCH (08:40)
[2018-05-24] MEDS: Insulin NovoLOG Aspart Correctional Sugar Inj SQ SCH ×4 (08:44→21:36)
--- NOTE | 2018-05-24 10:26 | P.PNIM ---
Subjective Interval history: pt reports that his pain is improved but he has not eaten anything in several days Pt is to be seen by General Surgery today to determine about timing of surgery Physical Exam Vital signs: Last Vital Signs Temp 98.6 F 05/24/18 07:52 Pulse 95 H 05/24/18 07:52 Resp 16 05/24/18 07:52 BP 128/73 05/24/18 07:52 Pulse Ox 97 05/24/18 07:52 Narrative: General: NAD, AAOx3 Chest: CTA Cardiac: Regular Abd: +BS, soft, mildly distended, RUQ tenderness with voluntary guarding Ext: No edema Results Labs CBC & Chem 7: 05/24/18 04:50 05/24/18 04:30 Imaging Abdomen/Pelvis CT 05/23/18 17:33 CONCLUSION: 1. Severe hepatic steatosis. 2. Dilated gallbladder containing wall thickening versus pericholecystic fluid. Cholecystitis should be excluded. Assessment and Plan Assessment (1) Cholecystitis: Code(s): K81.9 - Cholecystitis, unspecified Status: Acute (2) Diabetes: Code(s): E11.9 - Type 2 diabetes mellitus without complications Status: Acute (3) Hypertension: Code(s): I10 - Essential (primary) hypertension Status: Acute Plan Cholecystitis - Pt is a 47 y/o male with DM2 who was sent by his primary care physician, Dr. Kojo Guzman, for evaluation of abnormal outpatient ultrasound results. The patient has been having intermittent pain in his right upper quadrant of the abdomen for the last 2-3 months. Pain is worse after eating fatty foods. The pain worsened over the last few days and was seen by his PCP - Outpt RUQ ultrasound (05/23/18) revealed limited visibility of the pancreas, fluid collection adjacent to the pancreatic head, could be reflection of pseudocyst formation or possible pancreatic inflammation such as pancreatitis. - He was sent to ER and CT scan with contrast revealed numerous gallstones in the gallbladder with some sludge, gallbladder wall thickening is not substantially present but there is pericholecystic fluid present which suggest possible inflammation. - Gen surgery was consulted by ER provider - Pt is NPO - IVF - Await GS recommendations Diabetes mellitus - Pt reports that his Hgb A1c is around 9 - Hold Farxiga due to NPO - He has noted elevated BHB, mild metabolic acidosis. - Cont. IVF - NovoLog SSI - Accu checks Attending Attestation Patient examined. Assessment and plan formulated with Delmy Ware PA-C. I agree with the above. seen in PACU post cholecystectomy. vitals stable. pt follows commands diet per GI and probably dc in AM Progress Note: Quality VTE Deep Vein Thrombosis/Pulmonary Embolism Present on Admission: No _ (1) Diabetes Qualifiers: Chronic kidney disease stage: Diabetes mellitus complication detail: Diabetes mellitus complication status: Diabetes mellitus remote computer terminal operator insulin use : Diabetes mellitus macular edema: Diabetes mellitus type: type 2 Diabetic retinopathy severity: Laterality: Proliferative retinopathy type: (2) Hypertension Qualifiers: Hypertension type: essential hypertension Qualified Code(s): I10 - Essential (primary) hypertension
[2018-05-24] MEDS ORDERED: Chlorhexidine Gluconate 2% 1 Pack (2 Cloths) TOPICAL ONE (12:00)
[2018-05-24] MEDS ORDERED: Sodium Chlor 0.9% Inj 500 ML IV.CONT ONE (12:00)
[2018-05-24] MEDS ORDERED: Metoprolol Tartrate 25 MG Tablet PO ONE (12:00)
[2018-05-24] MEDS ORDERED: Bupivacaine/Epinephrine PF Inj 0.5% 30 ML Vial ONE (12:51)
[2018-05-24] MEDS ORDERED: Neostigmine Inj 5 MG/5 ML Syringe IV.PUSH ONE (13:08)
[2018-05-24] MEDS ORDERED: Lidocaine PF 1% Inj 5 ML Syringe OTHER ONE (13:08)
[2018-05-24] MEDS ORDERED: Phenylephrine/NS 1000 MCG/10ML Syringe IV.PUSH ONE (13:08)
[2018-05-24] MEDS ORDERED: Glycopyrrolate Inj 1 MG/5 ML Syringe IV.PUSH ONE (13:08)
[2018-05-24] MEDS ORDERED: Promethazine 25 MG Supp RECTAL PRN (14:42)
[2018-05-24] MEDS ORDERED: Post-op Orders (for Pharmacy) OTHER ONE (14:42)
[2018-05-24] MEDS ORDERED: Bisacodyl 10 MG Supp RECTAL PRN (14:42)
[2018-05-24] MEDS ORDERED: fentaNYL Citrate Inj 100 MCG/2 ML Ampul ONE (15:00)
[2018-05-24] MEDS: Senna/Docusate Sodium 8.6/50 MG Tablet PO SCH (21:36)
--- NOTE | 2018-05-24 23:57 | MP ---
cc: Jameson Vincent MD DATE OF OPERATION: 05/24/2018 PREOPERATIVE DIAGNOSIS: Acute cholecystitis. POSTOPERATIVE DIAGNOSIS: Acute cholecystitis. PROCEDURE PERFORMED: Laparoscopic cholecystectomy. SURGEON: Jameson Vincent MD. ANESTHESIA: General endotracheal anesthesia. ESTIMATED BLOOD LOSS: 50 mL. FINDINGS: 1. Inflamed gallbladder with stones. 2. Small umbilical hernia with incarcerated omentum within it. As this was incarcerated within the hernia, it was decided not to fix this at this time. SPECIMENS: Gallbladder with stones. COMPLICATIONS: None. DESCRIPTION OF PROCEDURE: The patient was brought to the operating room, placed on the operating table in supine position. Bilateral and sequential inflation devices placed on the lower extremities. General anesthesia instituted. The abdomen was prepped and draped sterilely. A point in the supraumbilical region was anesthetized with 0.25% Marcaine with epinephrine. A skin incision was made, 5-mm Optiview port placed under direct vision and pneumoperitoneum created. Under direct vision, a 12-mm subxiphoid port and two 5-mm right upper quadrant ports were placed. Prior to placement of all ports, the skin and peritoneum were anesthetized with 0.25% Marcaine with epinephrine. The patient was placed in reverse Trendelenburg position, right side up. Findings were as above. The gallbladder was retracted into the upper abdomen. The omentum was dissected off the gallbladder bluntly. The infundibulum was retracted. The cystic artery was dissected out using blunt dissection. It was circumferentially dissected and ligated with Hemoclips. The cystic duct was identified. It was circumferentially dissected. The gallbladder was then taken down from the liver bed in an antegrade fashion. The only remaining attachment was the cystic duct. The cystic duct was then Endolooped and divided above the loop. The gallbladder was retrieved from the peritoneal cavity in an Endopouch through the 12-mm port site. The liver bed was inspected. Hemoclips intact. No evidence of bile leak or hemorrhage. SNoW hemostatic device left in the liver bed. The fascia at the 12-mm port site then approximated with #2 Vicryl using a Irvin-Rex fascial closure device. The CO2 was released. All ports were removed. All skin incisions closed with 4-0 Monocryl. The abdominal wall was cleaned and a sterile dressing placed. The patient was awakened and taken to the recovery room. MD CAMACHO Akins/joseph/maricarmen , 10:41 PM , 10:49 PM
[2018-05-25] MEDS: Sod Chloride 0.9% Inj 1,000 ML IV.CONT SCH ×2 (00:36→05:40)
[2018-05-25] MEDS: Piperacil/Tazo 3.375 GM Premix 3.375 GM/50 ML PIGGYBACK IV.SIG SCH ×2 (05:44→14:18)
[2018-05-25 07:40] VITALS: BP 123/68; PULSE 90; RESP 16; TEMP 98.2; O2SAT 95
--- NOTE | 2018-05-25 08:05 | P.PNIM ---
Subjective Interval history: Pt tolerating some clear liquids last night No nausea or vomiting No flatus yet. Physical Exam Vital signs: Last Vital Signs Temp 98.2 F 05/25/18 07:39 Pulse 90 05/25/18 07:39 Resp 16 05/25/18 07:39 BP 123/68 05/25/18 07:39 Pulse Ox 95 05/25/18 07:39 Narrative: General: NAD, AAOx3 Chest: CTA Cardiac: Regular Abd: +BS, soft, mildly distended, incisions are c/d/i with steri-strips in place , mild RUQ tenderness Ext: No edema Results Labs CBC & Chem 7: 05/24/18 04:50 05/24/18 04:30 Imaging Abdomen/Pelvis CT 05/23/18 17:33 CONCLUSION: 1. Severe hepatic steatosis. 2. Dilated gallbladder containing wall thickening versus pericholecystic fluid. Cholecystitis should be excluded. Assessment and Plan Assessment (1) Cholecystitis: Code(s): K81.9 - Cholecystitis, unspecified Status: Acute (2) Diabetes: Code(s): E11.9 - Type 2 diabetes mellitus without complications Status: Acute (3) Hypertension: Code(s): I10 - Essential (primary) hypertension Status: Acute Plan Cholecystitis - Pt is a 47 y/o male with DM2 who was sent by his primary care physician, Dr. Kojo Guzman, for evaluation of abnormal outpatient ultrasound results. The patient has been having intermittent pain in his right upper quadrant of the abdomen for the last 2-3 months. Pain is worse after eating fatty foods. The pain worsened over the last few days and was seen by his PCP - Outpt RUQ ultrasound (05/23/18) revealed limited visibility of the pancreas, fluid collection adjacent to the pancreatic head, could be reflection of pseudocyst formation or possible pancreatic inflammation such as pancreatitis. - He was sent to ER and CT scan with contrast revealed numerous gallstones in the gallbladder with some sludge, gallbladder wall thickening is not substantially present but there is pericholecystic fluid present which suggest possible inflammation. - Pt underwent Lap Marisa on 05/24/[address] Mcnamara. - He is on clear liquid diet - Diet advancement per Diabetes mellitus - Pt reports that his Hgb A1c is around 9 - Hold Farxiga due to NPO - He has noted elevated BHB, mild metabolic acidosis. - NovoLog SSI - Accu checks Progress Note: Quality VTE Deep Vein Thrombosis/Pulmonary Embolism Present on Admission: No _ (1) Diabetes Qualifiers: Chronic kidney disease stage: Diabetes mellitus complication detail: Diabetes mellitus complication status: Diabetes mellitus bed bug exterminator insulin use : Diabetes mellitus macular edema: Diabetes mellitus type: type 2 Diabetic retinopathy severity: Laterality: Proliferative retinopathy type: (2) Hypertension Qualifiers: Hypertension type: essential hypertension Qualified Code(s): I10 - Essential (primary) hypertension
[2018-05-25] MEDS: Lisinopril 20 MG Tablet PO SCH (08:58)
[2018-05-25] MEDS: Senna/Docusate Sodium 8.6/50 MG Tablet PO SCH (08:58)
[2018-05-25] MEDS: Insulin NovoLOG Aspart Correctional Sugar Inj SQ SCH ×2 (09:00→14:08)
== END 2018-05-25 17:24 | disposition home or self-care (01) ==
LOC: NEPE 15:50 → NEDA 20:21 → INTOOBSV 20:21 → NEDA 21:53 → NEPGCP 21:59
PROVIDERS: ADMIT Hospitalist; ATTEND Hospitalist
DX: E87.2 Acidosis; I12.9 Hypertensive chronic kidney disease with stage 1 through stage 4 chronic kidney disease, or unspecified chronic kidney disease; K42.0 Umbilical hernia with obstruction, without gangrene; K76.0 Fatty (change of) liver, not elsewhere classified; E11.3519 Type 2 diabetes mellitus with proliferative diabetic retinopathy with macular edema, unspecified eye; E66.9 Obesity, unspecified; K80.12 Calculus of gallbladder with acute and chronic cholecystitis without obstruction; E11.22 Type 2 diabetes mellitus with diabetic chronic kidney disease; N18.9 Chronic kidney disease, unspecified; Z79.899 Other long term (current) drug therapy; Z79.4 Long term (current) use of insulin
CPT/HCPCS: 74177; 80053; 80307; 81001; 82010; 82948; 82962; 83605; 83690; 83735; 85025; 85610; 85730; 88304; 90761; 90775; 96361; 96365; 96372; 96375; 96376; 99285; G0378; J0131; J1100; J1815; J2060; J2270; J2370; J2405; J2543; J2704; J2710; J3010; J7030; J7120; Q9967